=== PATIENT | female | born 1935 | race Caucasian/White ===

== ENCOUNTER 2016-04-04 10:35 | Day surgery (SDC) | payer OTHER ==
[~2016-04-04] VITALS: Ht 160 cm; Wt 120.2 kg
[~2016-04-04 10:35] MED LIST: AMARYL4 MG PO; ASCORBIC ACID500 M3 PO; ASPIR-LOW81 MG PO; BACTRIM,SEPT1 TABLET PO; BENADRYL ALLERG25 MG PO; CALCIO DEL MAR500 MG PO; CELEXA20 MG PO; CYANOCOBALAM1000 MCG PO; CYANOCOBALAMI100 MCG PO; DIFLUCAN200 MG PO; GLIPIZIDE5 MG PO; HYDROCHLOROTHIA25 MG PO; HYDROCODON-ACE1 EAC7 PO; JANUMET 50/11 TABLET PO; LISINOPRIL40 MG PO; LOSARTAN POTASS50 MG PO; LOVASTATIN40 MG PO; METFORMIN HCL1000 MG PO; MULTIVITAMIN1 EAC2 PO; NYSTATIN15 GM TP; ONE DAILY TABL1 EAC1 PO; PENICILLIN V P500 MG PO; PSORIASIS CREAM; SOTALOL120 MG PO; SOTALOL80 MG PO; TEMOVATE 0.05%30 GM TP; VITAMIN B-6100 MG PO; VITAMIN D31000 UNI2 PO; [UNRECOGNIZED DRUG - OTHER] PO
[2016-04-04 11:52] LABS: POINT-OF-CARE METER ID UU13113696
== END 2016-04-04 16:20 | disposition home or self-care (01) ==
LOC: CATH 10:35
PROVIDERS: Surgery
DX: I70.249 Atherosclerosis of native arteries of left leg with ulceration of unspecified site (principal); I70.92 Chronic total occlusion of artery of the extremities; L97.829 Non-pressure chronic ulcer of other part of left lower leg with unspecified severity; E11.9 Type 2 diabetes mellitus without complications; E78.5 Hyperlipidemia, unspecified; I10 Essential (primary) hypertension; Z86.73 Personal history of transient ischemic attack (TIA), and cerebral infarction without residual deficits; I48.91 Unspecified atrial fibrillation
CPT/HCPCS: 82948; C1725; C1760; C1769; C1887; C1894; J1644; J2250; J3010; S0020

== ENCOUNTER 2016-04-17 16:01 | Emergency (ER) | payer OTHER ==
[~2016-04-17] VITALS: Ht 160 cm; Wt 123.0 kg
[2016-04-17 19:41] LABS: HEMATOCRIT 33.5 % (36.0-46.0); MCH 28.1 PG (29.0-34.0); MCHC 32.2 G/DL (30.0-36.0); MCV 87.2 FL (83-99); MEAN PLAT.VOLUME 12.3 uM^3 (9.5-12.4); PLATELET COUNT 181 K/uL (156-360); RBC DIS.WIDTH-CV 12.7 % (11.8-14.6); RBC DIS.WIDTH-SD 39.2 % (39-53); RED BLOOD COUNT 3.84 M/uL (3.80-5.20); WHITE BLOOD COUNT 10.6 K/uL (4.1-10.2)
[2016-04-17 19:50] LABS: CHLORIDE 105 mEq/L (99-109); POTASSIUM 5.2 mEq/L (3.7-5.4); SODIUM 141 mEq/L (136-147)
[2016-04-17 19:52] LABS: GLUCOSE 162 mg/dL (70-99)
[2016-04-17 19:53] LABS: ANION GAP 9 MEQ/L (2-14)
[2016-04-17 19:56] LABS: GFR ESTIMATE (CALCULATED) 46 mL/min/
[2016-04-17 19:57] LABS: UREA NITROGEN (BUN) 37 mg/dL (9-23)
[2016-04-17 23:13] VITALS: BP 141/58
== END 2016-04-17 23:15 | disposition home or self-care (01) ==
LOC: EME 16:01
PROVIDERS: Emergency Medicine
DX: I73.9 Peripheral vascular disease, unspecified (principal); Z98.890 Other specified postprocedural states; E11.9 Type 2 diabetes mellitus without complications; E78.5 Hyperlipidemia, unspecified; I10 Essential (primary) hypertension; K21.9 Gastro-esophageal reflux disease without esophagitis; G89.29 Other chronic pain; Z87.891 Personal history of nicotine dependence; Z79.84 Long term (current) use of oral hypoglycemic drugs; Z79.82 Long term (current) use of aspirin
CPT/HCPCS: 80048; 85027; 93926; 99281; 99284

== ENCOUNTER 2016-04-25 10:11 | Inpatient (IN) | payer OTHER ==
[~2016-04-25] VITALS: Ht 160 cm; Wt 118.5 kg
[2016-04-25 11:04] LABS: MCH 28.2 PG (29.0-34.0); MCHC 32.2 G/DL (30.0-36.0); MCV 87.7 FL (83-99); MEAN PLAT.VOLUME 12.5 uM^3 (9.5-12.4); PLATELET COUNT 171 K/uL (156-360); RBC DIS.WIDTH-SD 39.7 % (39-53); RED BLOOD COUNT 3.65 M/uL (3.80-5.20); WHITE BLOOD COUNT 7.6 K/uL (4.1-10.2)
[2016-04-25 11:13] LABS: CHLORIDE 106 mEq/L (99-109); POTASSIUM 4.8 mEq/L (3.7-5.4); SODIUM 139 mEq/L (136-147)
[2016-04-25 11:15] LABS: GLUCOSE 272 mg/dL (70-99); PROTHROMBIN TIME 10.5 (9.2-11.2); PTT 25.9 (25-32)
[2016-04-25 11:16] LABS: ANION GAP 10 MEQ/L (2-14)
[2016-04-25 11:17] LABS: TOTAL BILIRUBIN 0.2 mg/dL (0.0-1.0)
[2016-04-25 11:18] LABS: ALKALINE PHOSPHATASE 86 IU/L (3-129)
[2016-04-25 11:19] LABS: GFR ESTIMATE (CALCULATED) 51 mL/min/
[2016-04-25 11:20] LABS: UREA NITROGEN (BUN) 34 mg/dL (9-23)
[2016-04-25 19:35] LABS: HEMATOCRIT 33.8 % (36.0-46.0); MCH 27.3 PG (29.0-34.0); MCHC 31.4 G/DL (30.0-36.0); MCV 87.1 FL (83-99); MEAN PLAT.VOLUME 12.1 uM^3 (9.5-12.4); PLATELET COUNT 188 K/uL (156-360); RBC DIS.WIDTH-CV 13.1 % (11.8-14.6); RBC DIS.WIDTH-SD 41.8 % (39-53); RED BLOOD COUNT 3.88 M/uL (3.80-5.20); WHITE BLOOD COUNT 9.5 K/uL (4.1-10.2)
[2016-04-25 19:57] LABS: ANION GAP 5 MEQ/L (2-14); CHLORIDE 104 MEQ/L (99-109); POTASSIUM 3.9 MEQ/L (3.7-5.4); SAMPLE HEMOLYSIS CHECK 0; SAMPLE ICTERIC CHECK 0; SAMPLE LIPEMIA CHECK 0; SODIUM 136 MEQ/L (136-147)
[2016-04-25 20:02] LABS: GFR ESTIMATE (CALCULATED) > 59 mL/min/; GLUCOSE 214 mg/dL (70-99); UREA NITROGEN (BUN) 26 mg/dL (9-23)
[2016-04-25 20:06] LABS: TROP-I INTERPRETATION NEGATIVE; TROPONIN-I 0.02 ng/mL (0.0-0.30)
[2016-04-25 20:41] VITALS: BP 132/76
[2016-04-25 21:07] LABS: POINT-OF-CARE METER ID UU13113781
[2016-04-25 21:10] VITALS: BP 144/76
[2016-04-26] VITALS (8 sets, daily range): BP systolic 132–181; BP diastolic 60–78
[2016-04-26 06:50] LABS: HEMATOCRIT 31.2 % (36.0-46.0); MCH 28.3 PG (29.0-34.0); MCHC 31.7 G/DL (30.0-36.0); MCV 89.1 FL (83-99); MEAN PLAT.VOLUME 12.5 uM^3 (9.5-12.4); PLATELET COUNT 195 K/uL (156-360); RBC DIS.WIDTH-CV 13.4 % (11.8-14.6); RBC DIS.WIDTH-SD 43.5 % (39-53); WHITE BLOOD COUNT 9.5 K/uL (4.1-10.2)
[2016-04-26 07:15] LABS: TROP-I INTERPRETATION NEGATIVE; TROPONIN-I 0.02 ng/mL (0.0-0.30)
[2016-04-26 07:17] LABS: ANION GAP 7 MEQ/L (2-14); CHLORIDE 106 MEQ/L (99-109); GFR ESTIMATE (CALCULATED) > 59 mL/min/; POTASSIUM 4.2 MEQ/L (3.7-5.4); SAMPLE HEMOLYSIS CHECK 0; SAMPLE ICTERIC CHECK 0; SAMPLE LIPEMIA CHECK 0; SODIUM 141 MEQ/L (136-147); UREA NITROGEN (BUN) 22 mg/dL (9-23)
[2016-04-26 07:21] LABS: GLUCOSE 102 mg/dL (70-99)
[2016-04-26 07:37] LABS: POINT-OF-CARE METER ID UU14174216
[2016-04-26 11:20] LABS: POINT-OF-CARE METER ID UU14174216
[2016-04-26] MEDS ORDERED: TYLENOL EXTRA500 MG PO (12:33)
[2016-04-26] MEDS ORDERED: TRENTAL400 MG PO (12:33)
[2016-04-26] MEDS ORDERED: BENADRYL50 MG PO (12:34)
[2016-04-26 21:03] LABS: POINT-OF-CARE METER ID UU14174216
[2016-04-27 04:41] VITALS: BP 144/62
[2016-04-27 07:51] VITALS: BP 152/67
[2016-04-27 07:57] LABS: POINT-OF-CARE METER ID UU13113698; POINT-OF-CARE USER ID NUTSLF44
[2016-04-27 11:00] VITALS: BP 133/58
[2016-04-27 11:27] LABS: POINT-OF-CARE METER ID UU13113698; POINT-OF-CARE USER ID NUTSLF44
[2016-04-27] MEDS ORDERED: ENDOCET 5-3251 EACH PO (15:50)
[2016-04-27 17:01] LABS: POINT-OF-CARE METER ID UU13113698; POINT-OF-CARE USER ID NUTSLF44
== END 2016-04-27 19:07 | disposition home health service (06) | DRG 270 ==
LOC: EME 10:11 → SDC 17:28 → 4EAST 18:40 → 2SOUTH 18:40 → 4EAST 20:34
PROVIDERS: Emergency Medicine; Surgery
DX: I74.3 Embolism and thrombosis of arteries of the lower extremities (principal); L89.323 Pressure ulcer of left buttock, stage 3; L97.311 Non-pressure chronic ulcer of right ankle limited to breakdown of skin; E11.42 Type 2 diabetes mellitus with diabetic polyneuropathy; E11.51 Type 2 diabetes mellitus with diabetic peripheral angiopathy without gangrene; I10 Essential (primary) hypertension; Z86.73 Personal history of transient ischemic attack (TIA), and cerebral infarction without residual deficits; I48.91 Unspecified atrial fibrillation; Z87.891 Personal history of nicotine dependence; E66.9 Obesity, unspecified; L30.4 Erythema intertrigo; L97.522 Non-pressure chronic ulcer of other part of left foot with fat layer exposed; L97.821 Non-pressure chronic ulcer of other part of left lower leg limited to breakdown of skin; L97.811 Non-pressure chronic ulcer of other part of right lower leg limited to breakdown of skin; Z68.42 Body mass index [BMI] 45.0-49.9, adult
CPT/HCPCS: 80048; 80048 91; 80053; 82948; 84484; 85027; 85610; 85730; 87070; 87075; 87077; 87147; 87186; 87205; 93005; 93971; 99281; 99284; C1757; J0690; J1170; J1644; J1650; J1815; J2250; J2720; J3010; J7120

== ENCOUNTER → 2016-06-07 | Outpatient (CLI) | payer OTHER ==
[~2016-06-07] MED LIST changes: +BENADRYL50 MG PO; +ENDOCET 5-3251 EACH PO; +TRENTAL400 MG PO; +TYLENOL EXTRA500 MG PO
== END | disposition home or self-care (01) ==
LOC: PICC 12:59
DX: M86.9 Osteomyelitis, unspecified (principal)
CPT/HCPCS: 76937

== ENCOUNTER → 2016-07-07 | Outpatient (CLI) | payer MEDICARE, OTHER | END | disposition home or self-care (01) | LOC: CDC 11:11 | DX: I51.7 Cardiomegaly (principal); R94.31 Abnormal electrocardiogram [ECG] [EKG] | CPT/HCPCS: 93000 ==

== ENCOUNTER 2016-08-06 05:30 | Emergency (ER) | payer OTHER ==
[~2016-08-06] VITALS: Ht 160 cm; Wt 135.1 kg
[2016-08-06] MEDS ORDERED: OXYCODONE-APAP1 EAC6 PO (07:11)
[2016-08-06] MEDS ORDERED: TRADJENTA5 MG PO (07:11)
[2016-08-06 09:56] VITALS: BP 155/43
[2016-08-06 10:00] LABS: POINT-OF-CARE METER ID UU13113747
== END 2016-08-06 10:05 | disposition home or self-care (01) ==
LOC: EME → EDBD 05:30 → EME 05:30
PROVIDERS: Emergency Medicine
PROC: 3E0234Z Introduction of Serum, Toxoid and Vaccine into Muscle, Percutaneous Approach (ICD-10-PCS; principal; 2016-08-06)
DX: S51.801A Unspecified open wound of right forearm, initial encounter (principal); E08.628 Diabetes mellitus due to underlying condition with other skin complications; L97.319 Non-pressure chronic ulcer of right ankle with unspecified severity; L97.329 Non-pressure chronic ulcer of left ankle with unspecified severity; W18.30XA Fall on same level, unspecified, initial encounter; Z23 Encounter for immunization; E78.5 Hyperlipidemia, unspecified; I10 Essential (primary) hypertension; Z88.1 Allergy status to other antibiotic agents; Z87.891 Personal history of nicotine dependence; Z79.84 Long term (current) use of oral hypoglycemic drugs; Z86.73 Personal history of transient ischemic attack (TIA), and cerebral infarction without residual deficits
CPT/HCPCS: 73090; 82948; 99281; 99283

== ENCOUNTER 2016-08-11 11:25 | Inpatient (IN) | payer OTHER ==
[~2016-08-11] VITALS: Ht 161.3 cm; Wt 125.0 kg
[~2016-08-11 11:25] MED LIST changes: +OXYCODONE-APAP1 EAC6 PO; +TRADJENTA5 MG PO
[2016-08-11 12:22] LABS: POINT-OF-CARE METER ID UU14100415
[2016-08-11 13:27] LABS: EOSINOPHIL (%) 4.3 % (0-5); EOSINOPHIL COUNT 0.4 K/uL (0-0.3); HEMATOCRIT 32.1 % (36.0-46.0); IMMATURE GRANULOCYTE (%) 0.6 % (0.0-0.7); IMMATURE GRANULOCYTE COUNT 0.1 K/uL; INSTRUMENT ABS NEUTROPHIL CT 5.9 K/uL; LYMPHOCYTE COUNT 1.1 K/uL (1.0-2.8); MCH 27.7 PG (29.0-34.0); MCHC 30.2 G/DL (30.0-36.0); MCV 91.7 FL (83-99); MEAN PLAT.VOLUME 12.4 uM^3 (9.5-12.4); MONOCYTE (%) 9.6 % (3-12); MONOCYTE COUNT 0.8 K/uL (0-0.8); NEUTROPHIL (%) 72.2 % (45-76); NEUTROPHIL COUNT 5.9 K/uL (1.8-6.4); PLATELET COUNT 115 K/uL (156-360); RBC DIS.WIDTH-CV 14.5 % (11.8-14.6); RBC DIS.WIDTH-SD 48.8 % (39-53); WHITE BLOOD COUNT 8.2 K/uL (4.1-10.2)
[2016-08-11 13:35] LABS: CHLORIDE 104 mEq/L (99-109); POTASSIUM 5.3 mEq/L (3.7-5.4); SODIUM 138 mEq/L (136-147)
[2016-08-11 13:37] LABS: GLUCOSE 144 mg/dL (70-99)
[2016-08-11 13:38] LABS: INTER. NORMALIZED RATIO 1.1; PROTHROMBIN TIME 10.7 (9.2-11.2); PTT 31.7 (25-32)
[2016-08-11 13:39] LABS: ANION GAP 6 MEQ/L (2-14); TOTAL BILIRUBIN 0.4 mg/dL (0.0-1.0)
[2016-08-11 13:41] LABS: ALKALINE PHOSPHATASE 138 IU/L (3-129); GFR ESTIMATE (CALCULATED) > 59 mL/min/
[2016-08-11 13:42] LABS: UREA NITROGEN (BUN) 33 mg/dL (9-23)
[2016-08-11 13:44] LABS: CREATINE KINASE 21 IU/L (1-294); TOTAL CK 21 IU/L (1-294)
[2016-08-11 13:48] LABS: TROP-I INTERPRETATION NEGATIVE; TROPONIN-I < 0.01 ng/mL (0.0-0.30)
[2016-08-11 13:50] LABS: CK-MB 2.9 ng/mL (0.0-4.9)
[2016-08-11] MEDS ORDERED: SANTYL30 GM TP (14:39)
[2016-08-11] MEDS ORDERED: CALCIUM 600 +1 EA16 PO (14:40)
[2016-08-11] MEDS ORDERED: GLIPIZIDE5 MG PO (14:40)
[2016-08-11] MEDS ORDERED: METFORMIN HCL1000 MG PO (14:41)
[2016-08-11] MEDS ORDERED: CLOPIDOGREL75 MG PO (14:41)
[2016-08-11] MEDS ORDERED: CORTIZONE-10 PL57 GM TP (14:41)
[2016-08-11] MEDS ORDERED: FERROUS SULFAT325 MG PO (14:42)
[2016-08-11 17:35] LABS: TROP-I INTERPRETATION NEGATIVE; TROPONIN-I < 0.01 ng/mL (0.0-0.30)
[2016-08-11 21:40] VITALS: BP 152/74
[2016-08-11 23:26] LABS: ADD MIUA? YES; BILIRUBIN NEGATIVE; BLOOD MODERATE; COLOR YELLOW ((YELLOW)); GLUCOSE (STRIP) NEGATIVE; KETONES NEGATIVE; LEUKOCYTES LARGE; NITRITE POSITIVE; PROTEIN (STRIP) 100; SPECIFIC GRAVITY 1.028 (1.000-1.030); UROBILINOGEN 0.2 MG/DL (0.2-1.0)
[2016-08-11 23:45] VITALS: BP 95/46
[2016-08-11 23:49] LABS: TROP-I INTERPRETATION NEGATIVE; TROPONIN-I < 0.01 ng/mL (0.0-0.30)
[2016-08-12 00:04] LABS: EPITHELIAL CELLS 1+ /HPF; WHITE BLOOD CELLS 30-40 /HPF (0-5)
[2016-08-12 00:05] LABS: BACTERIA 2+ /HPF; MUCUS 1+ /LPF; UCUL ADDED? YES
[2016-08-12 03:56] VITALS: BP 131/58
[2016-08-12 05:01] LABS: EOSINOPHIL (%) 3.8 % (0-5); EOSINOPHIL COUNT 0.2 K/uL (0-0.3); HEMATOCRIT 30.2 % (36.0-46.0); HEMATOCRIT 30.3 % (36.0-46.0); IMMATURE GRANULOCYTE (%) 0.5 % (0.0-0.7); IMMATURE GRANULOCYTE (%) 0.7 % (0.0-0.7); INSTRUMENT ABS NEUTROPHIL CT 3.9 K/uL; LYMPHOCYTE COUNT 0.9 K/uL (1.0-2.8); MCH 27.2 PG (29.0-34.0); MCH 27.6 PG (29.0-34.0); MCHC 29.4 G/DL (30.0-36.0); MCHC 29.8 G/DL (30.0-36.0); MCV 92.6 FL (83-99); MCV 92.7 FL (83-99); MEAN PLAT.VOLUME 11.9 uM^3 (9.5-12.4); MEAN PLAT.VOLUME 12.5 uM^3 (9.5-12.4); MONOCYTE (%) 7.7 % (3-12); MONOCYTE (%) 8.4 % (3-12); MONOCYTE COUNT 0.4 K/uL (0-0.8); MONOCYTE COUNT 0.5 K/uL (0-0.8); NEUTROPHIL (%) 70.1 % (45-76); NEUTROPHIL (%) 70.4 % (45-76); NEUTROPHIL COUNT 3.9 K/uL (1.8-6.4); PLATELET COUNT 101 K/uL (156-360); PLATELET COUNT 103 K/uL (156-360); RBC DIS.WIDTH-CV 14.5 % (11.8-14.6); RBC DIS.WIDTH-CV 14.6 % (11.8-14.6); RBC DIS.WIDTH-SD 49.3 % (39-53); RED BLOOD COUNT 3.26 M/uL (3.80-5.20); RED BLOOD COUNT 3.27 M/uL (3.80-5.20); WHITE BLOOD COUNT 5.6 K/uL (4.1-10.2)
[2016-08-12 05:11] LABS: CHLORIDE 105 mEq/L (99-109); POTASSIUM 5.5 mEq/L (3.7-5.4); SODIUM 137 mEq/L (136-147)
[2016-08-12 05:12] LABS: CHLORIDE 107 mEq/L (99-109); POTASSIUM 5.5 mEq/L (3.7-5.4); SODIUM 138 mEq/L (136-147)
[2016-08-12 05:13] LABS: GLUCOSE 134 mg/dL (70-99)
[2016-08-12 05:14] LABS: ANION GAP 5 MEQ/L (2-14); GLUCOSE 133 mg/dL (70-99)
[2016-08-12 05:15] LABS: ANION GAP 4 MEQ/L (2-14)
[2016-08-12 05:16] LABS: GFR ESTIMATE (CALCULATED) > 59 mL/min/
[2016-08-12 05:17] LABS: UREA NITROGEN (BUN) 31 mg/dL (9-23)
[2016-08-12 05:18] LABS: ALKALINE PHOSPHATASE 126 IU/L (3-129); GFR ESTIMATE (CALCULATED) > 59 mL/min/
[2016-08-12 05:19] LABS: UREA NITROGEN (BUN) 32 mg/dL (9-23)
[2016-08-12 05:20] LABS: TROP-I INTERPRETATION NEGATIVE; TROPONIN-I < 0.01 ng/mL (0.0-0.30)
[2016-08-12 05:21] LABS: TOTAL BILIRUBIN 0.3 mg/dL (0.0-1.0)
[2016-08-12 07:59] LABS: POINT-OF-CARE METER ID UU14174216
[2016-08-12 08:27] VITALS: BP 105/51
[2016-08-12 09:48] LABS: METH RESISTANT S AUREUS PCR NEGATIVE (NEGATIVE); PROBE CHECK PASS; SPECIMEN PROCESSING CONTROL PASS
[2016-08-12 11:51] VITALS: BP 137/56
[2016-08-12 13:44] LABS: ANION GAP 6 MEQ/L (2-14); CHLORIDE 103 MEQ/L (99-109); GFR ESTIMATE (CALCULATED) > 59 mL/min/; GLUCOSE 157 mg/dL (70-99); POTASSIUM 5.8 MEQ/L (3.7-5.4); SAMPLE HEMOLYSIS CHECK 0; SAMPLE ICTERIC CHECK 0; SAMPLE LIPEMIA CHECK 0; SODIUM 140 MEQ/L (136-147); UREA NITROGEN (BUN) 34 mg/dL (9-23)
[2016-08-12 15:00] LABS: TYPE OF FLUID PLEURAL
[2016-08-12 15:17] LABS: BODY FLUID RBC'S 1000 /MM^3 (0-100); BODY FLUID WBC'S 621 /MM^3 (0-500)
[2016-08-12 15:29] LABS: BODY FLUID LDH 43 IU/L
[2016-08-12 16:00] VITALS: BP 125/59
[2016-08-12 16:00] LABS: BODY FLUID EOSINOPHILS 1 % (0-25); MONONUCLEAR WBC'S 87 %; POLYNUCLEAR WBC'S 12 % (0-25)
[2016-08-12 19:45] VITALS: BP 156/65
[2016-08-12 20:50] LABS: POINT-OF-CARE METER ID UU14174216
[2016-08-13] VITALS (7 sets, daily range): BP systolic 130–164; BP diastolic 60–74
[2016-08-13 05:59] LABS: BASOPHIL COUNT 0.1 K/uL (0-0.1); EOSINOPHIL (%) 3.7 % (0-5); EOSINOPHIL COUNT 0.3 K/uL (0-0.3); HEMATOCRIT 33.5 % (36.0-46.0); IMMATURE GRANULOCYTE (%) 0.8 % (0.0-0.7); IMMATURE GRANULOCYTE COUNT 0.1 K/uL; INSTRUMENT ABS NEUTROPHIL CT 5.3 K/uL; MCH 27.5 PG (29.0-34.0); MCHC 29.6 G/DL (30.0-36.0); MCV 93.1 FL (83-99); MEAN PLAT.VOLUME 12.4 uM^3 (9.5-12.4); MONOCYTE COUNT 0.6 K/uL (0-0.8); NEUTROPHIL (%) 72.8 % (45-76); NEUTROPHIL COUNT 5.3 K/uL (1.8-6.4); PLATELET COUNT 103 K/uL (156-360); RBC DIS.WIDTH-CV 14.5 % (11.8-14.6); RBC DIS.WIDTH-SD 49.3 % (39-53); WHITE BLOOD COUNT 7.2 K/uL (4.1-10.2)
[2016-08-13 06:23] LABS: ALKALINE PHOSPHATASE 142 IU/L (3-129); ANION GAP 5 MEQ/L (2-14); CHLORIDE 104 MEQ/L (99-109); GFR ESTIMATE (CALCULATED) 57 mL/min/; GLUCOSE 185 mg/dL (70-99); POTASSIUM 5.2 MEQ/L (3.7-5.4); SAMPLE HEMOLYSIS CHECK 0; SAMPLE ICTERIC CHECK 0; SAMPLE LIPEMIA CHECK 0; SODIUM 140 MEQ/L (136-147); TOTAL BILIRUBIN 0.3 MG/DL (0.0-1.0); UREA NITROGEN (BUN) 33 mg/dL (9-23)
[2016-08-13 11:22] LABS: POINT-OF-CARE METER ID UU13113698
[2016-08-13 16:21] LABS: POINT-OF-CARE METER ID UU13113698
[2016-08-14 05:32] VITALS: BP 168/70
[2016-08-14 07:03] VITALS: BP 148/67
[2016-08-14 11:50] VITALS: BP 156/70
[2016-08-14 16:00] VITALS: BP 174/71
[2016-08-14 19:15] VITALS: BP 179/76
[2016-08-14 21:19] LABS: POINT-OF-CARE METER ID UU13113698
[2016-08-15 00:20] VITALS: BP 145/62
[2016-08-15 04:00] VITALS: BP 155/67
[2016-08-15 06:49] LABS: EOSINOPHIL COUNT 0.3 K/uL (0-0.3); HEMATOCRIT 31.4 % (36.0-46.0); IMMATURE GRANULOCYTE (%) 1.5 % (0.0-0.7); IMMATURE GRANULOCYTE COUNT 0.1 K/uL; LYMPHOCYTE COUNT 0.8 K/uL (1.0-2.8); MCH 28.4 PG (29.0-34.0); MCHC 30.6 G/DL (30.0-36.0); MCV 92.9 FL (83-99); MEAN PLAT.VOLUME 11.6 uM^3 (9.5-12.4); MONOCYTE (%) 7.3 % (3-12); MONOCYTE COUNT 0.5 K/uL (0-0.8); NEUTROPHIL (%) 73.6 % (45-76); PLATELET COUNT 93 K/uL (156-360); RBC DIS.WIDTH-CV 14.6 % (11.8-14.6); RBC DIS.WIDTH-SD 49.9 % (39-53); RED BLOOD COUNT 3.38 M/uL (3.80-5.20); WHITE BLOOD COUNT 6.8 K/uL (4.1-10.2)
[2016-08-15 07:22] LABS: ALKALINE PHOSPHATASE 133 IU/L (3-129); ANION GAP 3 MEQ/L (2-14); CHLORIDE 105 MEQ/L (99-109); GFR ESTIMATE (CALCULATED) > 59 mL/min/; GLUCOSE 176 mg/dL (70-99); POTASSIUM 4.6 MEQ/L (3.7-5.4); SAMPLE HEMOLYSIS CHECK 0; SAMPLE ICTERIC CHECK 0; SAMPLE LIPEMIA CHECK 0; SODIUM 140 MEQ/L (136-147); UREA NITROGEN (BUN) 23 mg/dL (9-23)
[2016-08-15 07:23] LABS: TOTAL BILIRUBIN 0.4 MG/DL (0.0-1.0)
[2016-08-15 08:04] VITALS: BP 185/71
[2016-08-15 11:22] VITALS: BP 144/70
[2016-08-15 15:30] VITALS: BP 158/70
[2016-08-15 19:20] VITALS: BP 151/56
[2016-08-15 21:10] LABS: POINT-OF-CARE METER ID UU13113698
[2016-08-15 23:26] LABS: BODY FLUID PH 7.9 (())
[2016-08-16] VITALS: BP 160/72
[2016-08-16 05:06] VITALS: BP 156/68
[2016-08-16 06:12] LABS: BASOPHIL COUNT 0.1 K/uL (0-0.1); EOSINOPHIL (%) 4.9 % (0-5); EOSINOPHIL COUNT 0.4 K/uL (0-0.3); HEMATOCRIT 32.3 % (36.0-46.0); IMMATURE GRANULOCYTE (%) 1.4 % (0.0-0.7); IMMATURE GRANULOCYTE COUNT 0.1 K/uL; INSTRUMENT ABS NEUTROPHIL CT 5.8 K/uL; MCH 28.2 PG (29.0-34.0); MEAN PLAT.VOLUME 12.6 uM^3 (9.5-12.4); MONOCYTE (%) 7.6 % (3-12); MONOCYTE COUNT 0.6 K/uL (0-0.8); NEUTROPHIL (%) 73.2 % (45-76); NEUTROPHIL COUNT 5.8 K/uL (1.8-6.4); NRBC (%) 0.3 /100 WBC (0-0); RBC DIS.WIDTH-CV 14.6 % (11.8-14.6); RBC DIS.WIDTH-SD 48.3 % (39-53); RED BLOOD COUNT 3.55 M/uL (3.80-5.20)
[2016-08-16 06:14] LABS: PLATELET COUNT 132 K/uL (156-360)
[2016-08-16 06:29] LABS: ANION GAP 7 MEQ/L (2-14); CHLORIDE 102 MEQ/L (99-109); GFR ESTIMATE (CALCULATED) > 59 mL/min/; GLUCOSE 197 mg/dL (70-99); SAMPLE HEMOLYSIS CHECK 1; SAMPLE ICTERIC CHECK 0; SAMPLE LIPEMIA CHECK 0; SODIUM 141 MEQ/L (136-147); UREA NITROGEN (BUN) 22 mg/dL (9-23)
[2016-08-16 08:10] LABS: POINT-OF-CARE METER ID UU14174216
[2016-08-16] MEDS ORDERED: NIFEDIPINE ER30 MG PO (10:55)
[2016-08-16] MEDS ORDERED: LISINOPRIL10 MG PO (10:55)
[2016-08-16] MEDS ORDERED: KEFLEX250 MG PO (10:55)
[2016-08-16] MEDS ORDERED: LASIX20 MG PO (10:56)
[2016-08-16 11:45] VITALS: BP 159/67
[2016-08-16 11:56] LABS: POINT-OF-CARE METER ID UU13113698
== END 2016-08-16 16:54 | DRG 308 ==
LOC: EME 11:25 → 4EAST 13:58 → EDOF 13:58 → 4EAST 21:17
PROVIDERS: Emergency Medicine; Hospitalist; Internal Medicine; Radiology Diagnostic Radiology
PROC: 0W993ZZ Drainage of Right Pleural Cavity, Percutaneous Approach (ICD-10-PCS; principal; 2016-08-12)
DX: R00.1 Bradycardia, unspecified (principal); T44.7X5A Adverse effect of beta-adrenoreceptor antagonists, initial encounter; I48.0 Paroxysmal atrial fibrillation; J90 Pleural effusion, not elsewhere classified; N39.0 Urinary tract infection, site not specified; B96.20 Unspecified Escherichia coli [E. coli] as the cause of diseases classified elsewhere; E11.69 Type 2 diabetes mellitus with other specified complication; M86.9 Osteomyelitis, unspecified; E11.52 Type 2 diabetes mellitus with diabetic peripheral angiopathy with gangrene; E11.42 Type 2 diabetes mellitus with diabetic polyneuropathy; E11.622 Type 2 diabetes mellitus with other skin ulcer; L89.323 Pressure ulcer of left buttock, stage 3; L97.311 Non-pressure chronic ulcer of right ankle limited to breakdown of skin; L97.821 Non-pressure chronic ulcer of other part of left lower leg limited to breakdown of skin; D69.6 Thrombocytopenia, unspecified; R79.89 Other specified abnormal findings of blood chemistry; B37.2 Candidiasis of skin and nail; L30.4 Erythema intertrigo; E78.5 Hyperlipidemia, unspecified; I10 Essential (primary) hypertension; D64.9 Anemia, unspecified; K21.9 Gastro-esophageal reflux disease without esophagitis; G89.4 Chronic pain syndrome; R32 Unspecified urinary incontinence; E55.9 Vitamin D deficiency, unspecified; Z66 Do not resuscitate; E66.01 Morbid (severe) obesity due to excess calories; Z68.43 Body mass index [BMI] 50.0-59.9, adult; Z98.62 Peripheral vascular angioplasty status; Z79.84 Long term (current) use of oral hypoglycemic drugs; Z79.82 Long term (current) use of aspirin; Z86.010 Personal history of colon polyps; Z86.73 Personal history of transient ischemic attack (TIA), and cerebral infarction without residual deficits; Z87.891 Personal history of nicotine dependence
CPT/HCPCS: 70450; 71010; 71275; 80048; 80048 91; 80053; 81003; 82550; 82553; 82948; 83605; 83615 91; 83880; 83986 90; 84439; 84443; 84481; 84484; 85025; 85025 91; 85379; 85610; 85730; 87040; 87070; 87075; 87077; 87086; 87186; 87205; 87641; 88108; 88305; 89051; 93005; 93306; 94760; 94799; 99281; 99285; J0696; J1644; J1815; J1940; J7050

== ENCOUNTER 2016-08-24 09:31 | Inpatient (IN) | payer OTHER ==
[~2016-08-24] VITALS: Ht 162.6 cm; Wt 127.0 kg
[~2016-08-24 09:31] MED LIST changes: +CALCIUM 600 +1 EA16 PO; +CLOPIDOGREL75 MG PO; +CORTIZONE-10 PL57 GM TP; +FERROUS SULFAT325 MG PO; +KEFLEX250 MG PO; +LASIX20 MG PO; +LISINOPRIL10 MG PO; +NIFEDIPINE ER30 MG PO; +SANTYL30 GM TP
[2016-08-24 09:55] LABS: POINT-OF-CARE METER ID UU13113702; POINT-OF-CARE USER ID NUTJLF39
[2016-08-24 10:12] LABS: EOSINOPHIL (%) 3.8 % (0-5); EOSINOPHIL COUNT 0.3 K/uL (0-0.3); HEMATOCRIT 29.1 % (36.0-46.0); IMMATURE GRANULOCYTE (%) 0.5 % (0.0-0.7); INSTRUMENT ABS NEUTROPHIL CT 6.3 K/uL; LYMPHOCYTE COUNT 0.7 K/uL (1.0-2.8); MCH 27.5 PG (29.0-34.0); MCHC 29.9 G/DL (30.0-36.0); MCV 92.1 FL (83-99); MEAN PLAT.VOLUME 11.8 uM^3 (9.5-12.4); MONOCYTE (%) 10.2 % (3-12); MONOCYTE COUNT 0.8 K/uL (0-0.8); NEUTROPHIL (%) 76.4 % (45-76); NEUTROPHIL COUNT 6.3 K/uL (1.8-6.4); PLATELET COUNT 101 K/uL (156-360); RBC DIS.WIDTH-CV 15.9 % (11.8-14.6); RBC DIS.WIDTH-SD 52.7 % (39-53); RED BLOOD COUNT 3.16 M/uL (3.80-5.20); WHITE BLOOD COUNT 8.2 K/uL (4.1-10.2)
[2016-08-24 10:27] LABS: CHLORIDE 106 mEq/L (99-109); POTASSIUM 4.8 mEq/L (3.7-5.4); SODIUM 145 mEq/L (136-147)
[2016-08-24 10:29] LABS: GLUCOSE 43 mg/dL (70-99)
[2016-08-24 10:30] LABS: ANION GAP 10 MEQ/L (2-14)
[2016-08-24 10:31] LABS: TOTAL BILIRUBIN 0.3 mg/dL (0.0-1.0)
[2016-08-24 10:32] LABS: ALKALINE PHOSPHATASE 103 IU/L (3-129)
[2016-08-24 10:33] LABS: GFR ESTIMATE (CALCULATED) 46 mL/min/
[2016-08-24 10:34] LABS: UREA NITROGEN (BUN) 39 mg/dL (9-23)
[2016-08-24 10:39] LABS: ADD MIUA? YES; BILIRUBIN NEGATIVE; BLOOD SMALL; COLOR YELLOW ((YELLOW)); GLUCOSE (STRIP) NEGATIVE; KETONES NEGATIVE; LEUKOCYTES MODERATE; NITRITE POSITIVE; PROTEIN (STRIP) 30; SPECIFIC GRAVITY 1.011 (1.000-1.030); UROBILINOGEN 0.2 MG/DL (0.2-1.0)
[2016-08-24 10:49] LABS: BACTERIA RARE /HPF; EPITHELIAL CELLS RARE /HPF; MUCUS TRACE /LPF; UCUL ADDED? YES; WHITE BLOOD CELLS TNTC /HPF (0-5); WHITE BLOOD CELLS CLUMP FEW /HPF (0-5)
[2016-08-24 11:01] LABS: POINT-OF-CARE METER ID UU13113702
[2016-08-24] MEDS ORDERED: ONE DAILY FOR1 EAC1 PO (11:20)
[2016-08-24] MEDS ORDERED: PENTOXIFYLLINE400 MG PO (11:22)
[2016-08-24] MEDS ORDERED: MILK OF MAGN PO (11:27)
[2016-08-24] MEDS ORDERED: FLEET ENEMA-AD118 ML PR (11:28)
[2016-08-24] MEDS ORDERED: DULCOLAX10 MG PR (11:28)
[2016-08-24] MEDS ORDERED: ACETAMINOPHEN325 M1 PO (11:29)
[2016-08-24 11:48] LABS: POINT-OF-CARE METER ID UU14100415
[2016-08-24 12:24] VITALS: BP 105/55
[2016-08-24 14:43] LABS: POINT-OF-CARE METER ID UU14162508
[2016-08-24 16:00] VITALS: BP 132/58
[2016-08-24 18:45] LABS: POINT-OF-CARE METER ID UU14162508
[2016-08-24 19:04] VITALS: BP 107/51
[2016-08-24 19:17] LABS: POINT-OF-CARE METER ID UU14162508
[2016-08-24 20:24] LABS: POINT-OF-CARE METER ID UU14162508
[2016-08-24 21:52] LABS: POINT-OF-CARE METER ID UU14162508
[2016-08-25] VITALS (8 sets, daily range): BP systolic 106–140; BP diastolic 52–63
[2016-08-25 06:36] LABS: POINT-OF-CARE METER ID UU14162508
[2016-08-25 07:39] LABS: ANION GAP 6 MEQ/L (2-14); CHLORIDE 104 MEQ/L (99-109); GFR ESTIMATE (CALCULATED) 42 mL/min/; SAMPLE HEMOLYSIS CHECK 0; SAMPLE ICTERIC CHECK 0; SAMPLE LIPEMIA CHECK 0; SODIUM 139 MEQ/L (136-147); UREA NITROGEN (BUN) 41 mg/dL (9-23)
[2016-08-25 07:46] LABS: GLUCOSE 74 mg/dL (70-99); POTASSIUM 6.1 MEQ/L (3.7-5.4)
[2016-08-25 09:16] LABS: POINT-OF-CARE METER ID UU14162508
[2016-08-25 10:53] LABS: POINT-OF-CARE METER ID UU14162508
[2016-08-25 14:13] LABS: POINT-OF-CARE METER ID UU14162508
[2016-08-25 18:16] LABS: POINT-OF-CARE METER ID UU14162508
[2016-08-25 21:32] LABS: POINT-OF-CARE METER ID UU14162508
[2016-08-26 02:10] LABS: POINT-OF-CARE METER ID UU14162508
[2016-08-26 03:44] VITALS: BP 115/57
[2016-08-26 05:48] LABS: POINT-OF-CARE METER ID UU14162508
[2016-08-26 07:20] LABS: HEMATOCRIT 27.9 % (36.0-46.0); MCH 28.1 PG (29.0-34.0); MCHC 30.5 G/DL (30.0-36.0); MCV 92.4 FL (83-99); MEAN PLAT.VOLUME 12.8 uM^3 (9.5-12.4); PLATELET COUNT 107 K/uL (156-360); RBC DIS.WIDTH-CV 15.6 % (11.8-14.6); RBC DIS.WIDTH-SD 51.6 % (39-53); RED BLOOD COUNT 3.02 M/uL (3.80-5.20); WHITE BLOOD COUNT 8.7 K/uL (4.1-10.2)
[2016-08-26 07:25] VITALS: BP 92/50
[2016-08-26 07:43] LABS: ANION GAP 5 MEQ/L (2-14); CHLORIDE 102 MEQ/L (99-109); GFR ESTIMATE (CALCULATED) 46 mL/min/; POTASSIUM 5.4 MEQ/L (3.7-5.4); SAMPLE HEMOLYSIS CHECK 0; SAMPLE ICTERIC CHECK 0; SAMPLE LIPEMIA CHECK 0; SODIUM 137 MEQ/L (136-147); UREA NITROGEN (BUN) 40 mg/dL (9-23)
[2016-08-26 07:44] LABS: GLUCOSE 165 mg/dL (70-99)
[2016-08-26 11:16] VITALS: BP 110/62
[2016-08-26] MEDS ORDERED: BACTRIM,SEPT1 TABLET PO (11:45)
[2016-08-26] MEDS ORDERED: NOVOLOG PE100 UNITS/ SC (11:53)
[2016-08-26] MEDS ORDERED: ZINC OXIDE56.7 GM TP (12:12)
[2016-08-26] MEDS ORDERED: KETOCONAZOLE60 GM TP (12:12)
[2016-08-26] MEDS ORDERED: SANTYL30 GM TP (12:13)
[2016-08-26] MEDS ORDERED: MAG-AL PLUS SUS30 ML PO (12:14)
== END 2016-08-26 14:30 | DRG 638 ==
LOC: EME 09:31 → 2EAST 10:35 → EDOF 10:35 → 2EAST 12:16
PROVIDERS: Emergency Medicine; Internal Medicine
DX: E11.649 Type 2 diabetes mellitus with hypoglycemia without coma (principal); N39.0 Urinary tract infection, site not specified; B96.20 Unspecified Escherichia coli [E. coli] as the cause of diseases classified elsewhere; Z16.12 Extended spectrum beta lactamase (ESBL) resistance; E11.51 Type 2 diabetes mellitus with diabetic peripheral angiopathy without gangrene; E78.5 Hyperlipidemia, unspecified; E87.5 Hyperkalemia; I10 Essential (primary) hypertension; K21.9 Gastro-esophageal reflux disease without esophagitis; G89.29 Other chronic pain; Z66 Do not resuscitate; E66.9 Obesity, unspecified; Z68.42 Body mass index [BMI] 45.0-49.9, adult; Z79.84 Long term (current) use of oral hypoglycemic drugs; Z79.02 Long term (current) use of antithrombotics/antiplatelets; Z79.82 Long term (current) use of aspirin; Z87.891 Personal history of nicotine dependence
CPT/HCPCS: 36415; 71010; 80048; 80053; 81003; 82948; 83036; 84443; 85025; 85025 91; 85027; 87040; 87077; 87086; 87186; 93005; 99281; 99285; G0378; J0696; J1644; J1815; J7050

== ENCOUNTER 2016-08-30 18:01 | Inpatient (IN) | payer OTHER ==
[~2016-08-30] VITALS: Ht 172.7 cm; Wt 140.0 kg
[~2016-08-30 18:01] MED LIST changes: +ACETAMINOPHEN325 M1 PO; +DULCOLAX10 MG PR; +FLEET ENEMA-AD118 ML PR; +KETOCONAZOLE60 GM TP; +MAG-AL PLUS SUS30 ML PO; +MILK OF MAGN PO; +NOVOLOG PE100 UNITS/ SC; +ONE DAILY FOR1 EAC1 PO; +PENTOXIFYLLINE400 MG PO; +ZINC OXIDE56.7 GM TP
[2016-08-30 19:52] LABS: ANION GAP 18 MEQ/L (2-14); CHLORIDE 105 mEq/L (99-109); CREATININE 4.2 mg/dL (0.6-1.3); GLUCOSE 128 mg/dL (70-99); ISTAT DEVICE 359068; POTASSIUM > 6.0 mEq/L (3.7-5.4); SODIUM 135 mEq/L (136-147); UREA NITROGEN (BUN) 95 mg/dL (9-23)
[2016-08-30 19:58] LABS: HEMATOCRIT 28.1 % (36.0-46.0); MCH 27.7 PG (29.0-34.0); MCHC 29.5 G/DL (30.0-36.0); MCV 93.7 FL (83-99); MEAN PLAT.VOLUME 11.4 uM^3 (9.5-12.4); PLATELET COUNT 181 K/uL (156-360); RBC DIS.WIDTH-CV 15.9 % (11.8-14.6); RBC DIS.WIDTH-SD 54.5 % (39-53); WHITE BLOOD COUNT 8.4 K/uL (4.1-10.2)
[2016-08-30 20:02] LABS: CHLORIDE 103 mEq/L (99-109); SODIUM 138 mEq/L (136-147)
[2016-08-30 20:05] LABS: ANION GAP 20 MEQ/L (2-14)
[2016-08-30 20:09] LABS: UREA NITROGEN (BUN) 92 mg/dL (9-23)
[2016-08-30 20:14] LABS: CARBON DIOXIDE (BICARBONATE) 17.1 MEQ/L (20-31)
[2016-08-30 20:15] LABS: TROP-I INTERPRETATION NEGATIVE; TROPONIN-I 0.09 ng/mL (0.0-0.30)
[2016-08-30 20:16] LABS: GFR ESTIMATE (CALCULATED) 11 mL/min/; GLUCOSE 129 mg/dL (70-99)
[2016-08-30 20:21] LABS: POTASSIUM 6.7 mEq/L (3.7-5.4)
[2016-08-30 23:00] VITALS: BP 92/49
[2016-08-30 23:15] VITALS: BP 92/49
[2016-08-30 23:30] VITALS: BP 95/48
[2016-08-31] VITALS (18 sets, daily range): BP systolic 61–141; BP diastolic 32–65
[2016-08-31 00:38] LABS: ADD MIUA? YES; BILIRUBIN NEGATIVE; BLOOD SMALL; GLUCOSE (STRIP) NEGATIVE; KETONES NEGATIVE; NITRITE NEGATIVE; PROTEIN (STRIP) 30; UROBILINOGEN 0.2 MG/DL (0.2-1.0)
[2016-08-31 00:40] LABS: LEUKOCYTES LARGE
[2016-08-31 00:48] LABS: METH RESISTANT S AUREUS PCR NEGATIVE (NEGATIVE)
[2016-08-31 00:48] LABS: COLOR STRAW ((YELLOW))
[2016-08-31 00:51] LABS: PROBE CHECK PASS; SPECIMEN PROCESSING CONTROL PASS
[2016-08-31 00:58] LABS: UCUL ADDED? YES; WHITE BLOOD CELLS TNTC /HPF (0-5)
[2016-08-31 01:02] LABS: CHLORIDE 103 mEq/L (99-109); SODIUM 140 mEq/L (136-147)
[2016-08-31 01:04] LABS: GLUCOSE 99 mg/dL (70-99); POTASSIUM 6.5 mEq/L (3.7-5.4)
[2016-08-31 01:05] LABS: ANION GAP 22 MEQ/L (2-14)
[2016-08-31 01:07] LABS: GFR ESTIMATE (CALCULATED) 11 mL/min/
[2016-08-31 01:08] LABS: UREA NITROGEN (BUN) 92 mg/dL (9-23)
[2016-08-31 02:30] LABS: BASE EXCESS -11.1 mEq/L (-3 to +3); BICARBONATE 15.4 mEq/L (22-26); CARBOXY HGB 1.9 % (0-5); METHEMOGLOBIN 1.6 % (0-1.5); PCO2 36 mm Hg (35-45); PO2 103 mm Hg (80-100)
[2016-08-31 02:31] LABS: COMMENTS - BLOOD GASES A+C+; SITE LR
[2016-08-31 02:32] LABS: DEVICE VENT; FI02 40 %; MODE NIV; PEEP 5 CM/H20; PRES. SUPPORT 20 CM/H2O; TOTAL RESP RATE 16 resp/min
[2016-08-31 02:33] LABS: pH 7.24 (7.35-7.45)
[2016-08-31 07:06] LABS: HEMATOCRIT 29.1 % (36.0-46.0); MCH 27.7 PG (29.0-34.0); MCHC 29.9 G/DL (30.0-36.0); MCV 92.7 FL (83-99); MEAN PLAT.VOLUME 12.1 uM^3 (9.5-12.4); PLATELET COUNT 230 K/uL (156-360); RBC DIS.WIDTH-CV 15.9 % (11.8-14.6); RBC DIS.WIDTH-SD 53.1 % (39-53); RED BLOOD COUNT 3.14 M/uL (3.80-5.20); WHITE BLOOD COUNT 10.8 K/uL (4.1-10.2)
[2016-08-31 07:27] LABS: ALKALINE PHOSPHATASE 159 IU/L (3-129); ANION GAP 22 MEQ/L (2-14); CHLORIDE 101 MEQ/L (99-109); GFR ESTIMATE (CALCULATED) 11 mL/min/; GLUCOSE 99 mg/dL (70-99); MAGNESIUM 2.5 mg/dl (1.3-2.7); SAMPLE HEMOLYSIS CHECK 1; SAMPLE ICTERIC CHECK 0; SAMPLE LIPEMIA CHECK 0; SODIUM 139 MEQ/L (136-147); TOTAL BILIRUBIN 0.3 MG/DL (0.0-1.0); UREA NITROGEN (BUN) 92 mg/dL (9-23)
[2016-08-31 07:28] LABS: POTASSIUM 6.4 MEQ/L (3.7-5.4)
[2016-08-31 11:06] LABS: POINT-OF-CARE METER ID UU13113803
[2016-08-31 13:32] LABS: ANION GAP 19 MEQ/L (2-14); CHLORIDE 99 MEQ/L (99-109); GFR ESTIMATE (CALCULATED) 11 mL/min/; GLUCOSE 125 mg/dL (70-99); POTASSIUM 6.9 MEQ/L (3.7-5.4); SAMPLE HEMOLYSIS CHECK 1; SAMPLE ICTERIC CHECK 0; SAMPLE LIPEMIA CHECK 0; SODIUM 138 MEQ/L (136-147); UREA NITROGEN (BUN) 91 mg/dL (9-23)
[2016-08-31] MEDS ORDERED: BACTRIM,SEPT1 TABLET PO (15:03)
[2016-08-31] MEDS ORDERED: NOVOLOG 10100 UNITS/ SC (15:04)
[2016-08-31] MEDS ORDERED: LASIX40 MG PO (15:09)
[2016-08-31] MEDS ORDERED: BENADRYL50 MG PO (15:10)
[2016-08-31 15:56] LABS: INTER. NORMALIZED RATIO 1.2; PROTHROMBIN TIME 11.8 (9.2-11.2); PTT 29.6 (25-32)
[2016-08-31 17:16] LABS: BASE EXCESS -7.4 mEq/L (-3 to +3); METHEMOGLOBIN 1.6 % (0-1.5); PO2 113 mm Hg (80-100)
[2016-08-31 17:17] LABS: BICARBONATE 21.2 mEq/L (22-26); COMMENTS - BLOOD GASES NAC+; DEVICE NRBM; FI02 100 %; O2 FLOW 15 L/MIN; PCO2 58 mm Hg (35-45); SITE ALINE; TOTAL RESP RATE 23 resp/min; pH 7.17 (7.35-7.45)
[2016-08-31 18:20] LABS: POINT-OF-CARE METER ID UU13113803
[2016-09-01] VITALS: BP 114/50
[2016-09-01 00:43] LABS: CHLORIDE 102 mEq/L (99-109); SODIUM 139 mEq/L (136-147)
[2016-09-01 00:43] LABS: POINT-OF-CARE METER ID UU14162636
[2016-09-01 00:44] LABS: MCH 27.7 PG (29.0-34.0); MCHC 31.3 G/DL (30.0-36.0); MCV 88.5 FL (83-99); MEAN PLAT.VOLUME 10.8 uM^3 (9.5-12.4); NRBC (%) 0.2 /100 WBC (0-0); PLATELET COUNT 220 K/uL (156-360); RBC DIS.WIDTH-CV 15.5 % (11.8-14.6); RED BLOOD COUNT 3.39 M/uL (3.80-5.20); WHITE BLOOD COUNT 14.1 K/uL (4.1-10.2)
[2016-09-01 00:46] LABS: ANION GAP 14 MEQ/L (2-14)
[2016-09-01 00:49] LABS: GFR ESTIMATE (CALCULATED) 15 mL/min/
[2016-09-01 00:50] LABS: UREA NITROGEN (BUN) 69 mg/dL (9-23)
[2016-09-01 00:52] LABS: GLUCOSE 217 mg/dL (70-99); POTASSIUM 5.3 mEq/L (3.7-5.4)
[2016-09-01 00:59] LABS: MAGNESIUM 1.7 mg/dL (1.3-2.7)
[2016-09-01 01:00] VITALS: BP 114/50
[2016-09-01 05:17] LABS: BASE EXCESS 0.4 mEq/L (-3 to +3); CARBOXY HGB 1.7 % (0-5); COMMENTS - BLOOD GASES C+; DEVICE NCH; METHEMOGLOBIN 1.5 % (0-1.5); O2 FLOW 8 L/MIN; PCO2 61 mm Hg (35-45); PO2 98 mm Hg (80-100); SITE ALINE; TOTAL RESP RATE 16 resp/min; pH 7.27 (7.35-7.45)
[2016-09-01 05:24] LABS: POINT-OF-CARE METER ID UU14174217
[2016-09-01 05:30] LABS: HEMATOCRIT 28.2 % (36.0-46.0); MCH 28.7 PG (29.0-34.0); MCHC 32.3 G/DL (30.0-36.0); MEAN PLAT.VOLUME 10.6 uM^3 (9.5-12.4); NRBC (%) 0.2 /100 WBC (0-0); PLATELET COUNT 181 K/uL (156-360); RBC DIS.WIDTH-CV 15.5 % (11.8-14.6); RBC DIS.WIDTH-SD 50.7 % (39-53); RED BLOOD COUNT 3.17 M/uL (3.80-5.20); WHITE BLOOD COUNT 11.1 K/uL (4.1-10.2)
[2016-09-01 05:58] LABS: ANION GAP 13 MEQ/L (2-14); CHLORIDE 101 MEQ/L (99-109); GLUCOSE 169 mg/dL (70-99); POTASSIUM 4.5 MEQ/L (3.7-5.4); SAMPLE HEMOLYSIS CHECK 0; SAMPLE ICTERIC CHECK 0; SAMPLE LIPEMIA CHECK 0; SODIUM 139 MEQ/L (136-147); UREA NITROGEN (BUN) 51 mg/dL (9-23)
[2016-09-01 06:00] LABS: GFR ESTIMATE (CALCULATED) 22 mL/min/
[2016-09-01 08:57] LABS: MAGNESIUM 1.8 mg/dl (1.3-2.7)
[2016-09-01 10:45] LABS: HBSG INDEX 0.21; HPCA INDEX 0.08
[2016-09-01 10:46] LABS: ANTI-HEPATITIS A VIRUS (IGM) Nonreactive; HAV INDEX 0.21
[2016-09-01 10:48] LABS: ANTI-HEPATITIS B CORE (IGM) Nonreactive; HBC IgM INDEX 0.05
[2016-09-01 12:15] LABS: HEMATOCRIT 28.7 % (36.0-46.0); MCH 28.4 PG (29.0-34.0); MCHC 31.7 G/DL (30.0-36.0); MCV 89.7 FL (83-99); MEAN PLAT.VOLUME 10.9 uM^3 (9.5-12.4); NRBC (%) 0.3 /100 WBC (0-0); PLATELET COUNT 157 K/uL (156-360); RBC DIS.WIDTH-CV 15.7 % (11.8-14.6); RBC DIS.WIDTH-SD 50.8 % (39-53); WHITE BLOOD COUNT 7.8 K/uL (4.1-10.2)
[2016-09-01 12:30] LABS: POINT-OF-CARE METER ID UU13113803
[2016-09-01 12:49] LABS: ANION GAP 14 MEQ/L (2-14); CHLORIDE 101 MEQ/L (99-109); GFR ESTIMATE (CALCULATED) 33 mL/min/; GLUCOSE 138 mg/dL (70-99); POTASSIUM 4.2 MEQ/L (3.7-5.4); SAMPLE HEMOLYSIS CHECK 0; SAMPLE ICTERIC CHECK 0; SAMPLE LIPEMIA CHECK 0; SODIUM 140 MEQ/L (136-147); UREA NITROGEN (BUN) 36 mg/dL (9-23)
[2016-09-01 18:02] LABS: POINT-OF-CARE METER ID UU13113803
[2016-09-01 18:10] LABS: TROP-I INTERPRETATION NEGATIVE; TROPONIN-I 0.14 ng/mL (0.0-0.30)
[2016-09-01 20:00] VITALS: BP 114/50
[2016-09-02 00:05] LABS: POINT-OF-CARE METER ID UU13113748
[2016-09-02 00:26] LABS: HEMATOCRIT 30.1 % (36.0-46.0); MCH 27.5 PG (29.0-34.0); MCHC 30.6 G/DL (30.0-36.0); MCV 90.1 FL (83-99); MEAN PLAT.VOLUME 11.4 uM^3 (9.5-12.4); PLATELET COUNT 179 K/uL (156-360); RBC DIS.WIDTH-CV 15.5 % (11.8-14.6); RBC DIS.WIDTH-SD 50.9 % (39-53); RED BLOOD COUNT 3.34 M/uL (3.80-5.20); WHITE BLOOD COUNT 8.4 K/uL (4.1-10.2)
[2016-09-02 00:44] LABS: CHLORIDE 102 mEq/L (99-109); POTASSIUM 4.8 mEq/L (3.7-5.4); SODIUM 138 mEq/L (136-147)
[2016-09-02 00:45] LABS: MAGNESIUM 1.9 mg/dL (1.3-2.7)
[2016-09-02 00:46] LABS: GLUCOSE 173 mg/dL (70-99)
[2016-09-02 00:48] LABS: ANION GAP 15 MEQ/L (2-14)
[2016-09-02 00:50] LABS: GFR ESTIMATE (CALCULATED) 27 mL/min/
[2016-09-02 00:51] LABS: UREA NITROGEN (BUN) 42 mg/dL (9-23)
[2016-09-02 00:53] LABS: CREATINE KINASE 624 IU/L (1-294); TOTAL CK 624 IU/L (1-294)
[2016-09-02 00:59] LABS: CK-MB 14.9 ng/mL (0.0-4.9)
[2016-09-02 01:03] LABS: TROP-I INTERPRETATION NEGATIVE
[2016-09-02 05:15] LABS: POINT-OF-CARE METER ID UU14174217
[2016-09-02 06:01] LABS: HEMATOCRIT 28.3 % (36.0-46.0); MCH 27.7 PG (29.0-34.0); MCHC 30.7 G/DL (30.0-36.0); MCV 90.1 FL (83-99); MEAN PLAT.VOLUME 10.9 uM^3 (9.5-12.4); PLATELET COUNT 149 K/uL (156-360); RBC DIS.WIDTH-CV 15.4 % (11.8-14.6); RBC DIS.WIDTH-SD 50.7 % (39-53); RED BLOOD COUNT 3.14 M/uL (3.80-5.20); WHITE BLOOD COUNT 6.7 K/uL (4.1-10.2)
[2016-09-02 06:26] LABS: TROP-I INTERPRETATION NEGATIVE; TROPONIN-I 0.11 ng/mL (0.0-0.30)
[2016-09-02 07:06] LABS: ABS NEUTROPHIL COUNT 6.3; BAND NEUTROPHILS 4.4 % (0-8.0); EOSINOPHIL ABS CT 0; INSTRUMENT ABS NEUTROPHIL CT 6.3 K/uL; LYMPHOCYTES 3.5 % (15.0-45.0); METAMYELOCYTES 0.9 %; SEG.NEUTROPHILS 90.3 % (46.0-76.0)
[2016-09-02 07:14] LABS: ANION GAP 13 MEQ/L (2-14); CHLORIDE 103 MEQ/L (99-109); CREATINE KINASE 475 IU/L (1-294); GLUCOSE 136 mg/dL (70-99); POTASSIUM 4.5 MEQ/L (3.7-5.4); SAMPLE HEMOLYSIS CHECK 0; SAMPLE ICTERIC CHECK 0; SAMPLE LIPEMIA CHECK 0; SODIUM 139 MEQ/L (136-147); TOTAL CK 475 IU/L (1-294); UREA NITROGEN (BUN) 32 mg/dL (9-23)
[2016-09-02 07:15] LABS: GFR ESTIMATE (CALCULATED) 39 mL/min/; MAGNESIUM 2.3 mg/dl (1.3-2.7)
[2016-09-02 07:33] LABS: CK-MB 18.2 ng/mL (0.0-4.9)
[2016-09-02 08:38] LABS: BASE EXCESS -4.5 mEq/L (-3 to +3); BICARBONATE 24.1 mEq/L (22-26); PCO2 59 mm Hg (35-45)
[2016-09-02 08:39] LABS: PO2 73 mm Hg (80-100)
[2016-09-02 08:40] LABS: COMMENTS - BLOOD GASES NAC+; SITE ALINE
[2016-09-02 08:41] LABS: DEVICE PB840 NIPV; FI02 40 %; MODE SPONT; PEEP 5 CM/H20; PRES. SUPPORT 15 CM/H2O
[2016-09-02 08:43] LABS: pH 7.22 (7.35-7.45)
[2016-09-02 12:00] VITALS: BP 95/34
[2016-09-02 12:15] VITALS: BP 128/36
[2016-09-02 12:22] LABS: POINT-OF-CARE METER ID UU14174217
[2016-09-02 12:52] LABS: MAGNESIUM 2.3 mg/dl (1.3-2.7)
[2016-09-02 13:00] VITALS: BP 128/36
[2016-09-02 13:02] LABS: CREATINE KINASE 434 IU/L (1-294); TOTAL CK 434 IU/L (1-294)
[2016-09-02 13:05] LABS: TROP-I INTERPRETATION NEGATIVE; TROPONIN-I 0.07 ng/mL (0.0-0.30)
[2016-09-02 13:10] LABS: CK-MB 17.7 ng/mL (0.0-4.9)
[2016-09-02 14:09] LABS: ANION GAP 14 MEQ/L (2-14); CHLORIDE 103 MEQ/L (99-109); POTASSIUM 4.5 MEQ/L (3.7-5.4); SAMPLE HEMOLYSIS CHECK 0; SAMPLE ICTERIC CHECK 0; SAMPLE LIPEMIA CHECK 0; SODIUM 138 MEQ/L (136-147)
[2016-09-02 14:29] LABS: GFR ESTIMATE (CALCULATED) 57 mL/min/; GLUCOSE 139 mg/dL (70-99); UREA NITROGEN (BUN) 25 mg/dL (9-23)
[2016-09-02 16:10] VITALS: BP 98/40
[2016-09-02 16:30] VITALS: BP 127/53
[2016-09-02 18:05] LABS: POINT-OF-CARE METER ID UU13113803
[2016-09-02 19:52] LABS: HEMATOCRIT 30.4 % (36.0-46.0); MCH 27.4 PG (29.0-34.0); MCHC 29.6 G/DL (30.0-36.0); MCV 92.7 FL (83-99); MEAN PLAT.VOLUME 11.5 uM^3 (9.5-12.4); NRBC (%) 0.3 /100 WBC (0-0); PLATELET COUNT 179 K/uL (156-360); RBC DIS.WIDTH-CV 15.7 % (11.8-14.6); RBC DIS.WIDTH-SD 53.1 % (39-53); RED BLOOD COUNT 3.28 M/uL (3.80-5.20); WHITE BLOOD COUNT 7.6 K/uL (4.1-10.2)
[2016-09-02 19:55] LABS: ANION GAP 17 MEQ/L (2-14); CHLORIDE 103 MEQ/L (99-109); POTASSIUM 4.8 MEQ/L (3.7-5.4); SAMPLE HEMOLYSIS CHECK 0; SAMPLE ICTERIC CHECK 0; SAMPLE LIPEMIA CHECK 0; SODIUM 138 MEQ/L (136-147)
[2016-09-02 19:59] LABS: MAGNESIUM 2.3 mg/dl (1.3-2.7)
[2016-09-02 20:19] LABS: GFR ESTIMATE (CALCULATED) > 59 mL/min/; GLUCOSE 118 mg/dL (70-99); UREA NITROGEN (BUN) 22 mg/dL (9-23)
[2016-09-03] VITALS: BP 104/35
[2016-09-03 00:02] LABS: MAGNESIUM 2.2 mg/dl (1.3-2.7)
[2016-09-03 01:00] VITALS: BP 0/0; BP 113/39
[2016-09-03 02:28] LABS: POINT-OF-CARE METER ID UU13113803
[2016-09-03 03:55] LABS: POINT-OF-CARE METER ID UU14174217
[2016-09-03 05:55] LABS: POINT-OF-CARE METER ID UU14174217
[2016-09-03 06:04] LABS: EOSINOPHIL (%) 0 % (0-5); HEMATOCRIT 28.5 % (36.0-46.0); IMMATURE GRANULOCYTE (%) 2.5 % (0.0-0.7); IMMATURE GRANULOCYTE COUNT 0.2 K/uL; INSTRUMENT ABS NEUTROPHIL CT 8.3 K/uL; LYMPHOCYTE COUNT 0.5 K/uL (1.0-2.8); MCH 28.9 PG (29.0-34.0); MCHC 30.2 G/DL (30.0-36.0); MCV 95.6 FL (83-99); MONOCYTE (%) 4.1 % (3-12); MONOCYTE COUNT 0.4 K/uL (0-0.8); NEUTROPHIL (%) 88.5 % (45-76); NEUTROPHIL COUNT 8.3 K/uL (1.8-6.4); NRBC (%) 2.1 /100 WBC (0-0); PLATELET COUNT 153 K/uL (156-360); RBC DIS.WIDTH-CV 15.9 % (11.8-14.6); RBC DIS.WIDTH-SD 54.7 % (39-53); RED BLOOD COUNT 2.98 M/uL (3.80-5.20); WHITE BLOOD COUNT 9.4 K/uL (4.1-10.2)
[2016-09-03 06:29] LABS: ANION GAP 18 MEQ/L (2-14); CHLORIDE 100 MEQ/L (99-109); GFR ESTIMATE (CALCULATED) > 59 mL/min/; GLUCOSE 138 mg/dL (70-99); MAGNESIUM 2.3 mg/dl (1.3-2.7); POTASSIUM 5.1 MEQ/L (3.7-5.4); SAMPLE HEMOLYSIS CHECK 0; SAMPLE ICTERIC CHECK 0; SAMPLE LIPEMIA CHECK 0; SODIUM 133 MEQ/L (136-147); UREA NITROGEN (BUN) 17 mg/dL (9-23)
[2016-09-05 12:53] LABS: POINT-OF-CARE METER ID UU13113803
[2016-09-05 12:53] LABS: POINT-OF-CARE METER ID UU13113803
== END 2016-09-03 09:29 | DRG 871 ==
LOC: EME 18:01 → EDOF 22:00 → 4WEST 22:00
PROVIDERS: Emergency Medicine; Internal Medicine Critical Care Medicine; Internal Medicine Nephrology; Internal Medicine Pulmonary Disease; Obstetrics & Gynecology
PROC: 05HM33Z Insertion of Infusion Device into Right Internal Jugular Vein, Percutaneous Approach (ICD-10-PCS; principal; 2016-08-31)
DX: A41.9 Sepsis, unspecified organism (principal); N17.0 Acute kidney failure with tubular necrosis; J96.01 Acute respiratory failure with hypoxia; R65.21 Severe sepsis with septic shock; E87.5 Hyperkalemia; E87.4 Mixed disorder of acid-base balance; B36.9 Superficial mycosis, unspecified; B96.20 Unspecified Escherichia coli [E. coli] as the cause of diseases classified elsewhere; Z16.12 Extended spectrum beta lactamase (ESBL) resistance; D64.9 Anemia, unspecified; E11.52 Type 2 diabetes mellitus with diabetic peripheral angiopathy with gangrene; E11.622 Type 2 diabetes mellitus with other skin ulcer; E66.01 Morbid (severe) obesity due to excess calories; E78.5 Hyperlipidemia, unspecified; I11.0 Hypertensive heart disease with heart failure; I50.9 Heart failure, unspecified; J44.1 Chronic obstructive pulmonary disease with (acute) exacerbation; K21.9 Gastro-esophageal reflux disease without esophagitis; L97.309 Non-pressure chronic ulcer of unspecified ankle with unspecified severity; N39.0 Urinary tract infection, site not specified; Z51.5 Encounter for palliative care; Z66 Do not resuscitate; Z68.42 Body mass index [BMI] 45.0-49.9, adult; Z87.891 Personal history of nicotine dependence; Z98.61 Coronary angioplasty status; G89.29 Other chronic pain; R00.1 Bradycardia, unspecified; T37.0X5A Adverse effect of sulfonamides, initial encounter
CPT/HCPCS: 36600; 36620; 71010; 76770; 80047; 80048; 80048 91; 80053; 80069; 80074; 80170; 81003; 82330; 82550; 82550 91; 82553; 82803; 82948; 83605; 83735; 83880; 84100; 84484; 84999; 85025; 85025 91; 85027; 85610; 85730; 87040; 87070; 87075; 87077; 87086; 87205; 87641; 93005; 93306; 94002; 94003; 94640; 94640 76; 94644; 94645; 94760; 94799; 99202; 99281; 99285; C1751; C1752; C1788; J0171; J0461; J1450; J1580; J1630; J1644; J1815; J2185; J2250; J2405; J2543; J2920; J2930; J3370; J3475; J7030; J7040; J7050; J7070; P9045; S0028